=== PATIENT | male | born 1945 | race Caucasian/White ===

== ENCOUNTER 2023-07-16 06:15 | Inpatient (IN) | payer MEDICARE, OTHER, SELFPAY ==
--- NOTE | 2023-06-16 11:31 | CM ---
Patient is scheduled for lumbar spine surgery on 07/16/23. Spoke with patient prior to surgery via telephone. Introduced role of the Orthopedic Navigator. Patient reports that he lives alone in a one story condo. There are four steps to enter. He
currently functions independently. He has a rolling walker and back brace. He has had VN services. PCP is Jeremiah Fischer.
Discussed orthopedic program, post surgical plans and tentative plan for patient to return home when directed by surgeon. Patient is in agreement with tentative plan and states that his sister and [id number] will stay with him when he first
goes home.
Plan: Orthopedic Navigator will remain available to assist with the care of patient and will reassess discharge needs after surgery.
[2023-06-26 13:08] VITALS: BMI 31.6
[2023-06-26 13:48] LABS: Hematocrit 43.2 % (39.0-52.0); Hemoglobin 15.1 g/dL (13.0-18.0); Mean Corpuscular Hgb 32.5 pg (27.0-31.0); Mean Corpuscular Volume 93.1 fL (80.0-94.0); Mean Platelet Volume 10.2 fL (7.4-10.4); Platelet Count 242 10^3/uL (130-400); Red Blood Cell Count 4.64 10^6/uL (4.70-6.10); Red Cell Dist. Width 12.7 % (11.5-14.5); White Blood Cell Count 6.4 10^3/uL (4.8-10.8)
[2023-06-26 14:02] LABS: ALT (SGPT) 67 U/L (0-50); AST (SGOT) 50 U/L (17-59); Albumin 4.6 g/dl (3.5-5.0); Alkaline Phosphatase 97 U/L (38-126); Blood Urea Nitrogen 10 mg/dl (9-20); Calcium 9.2 mg/dl (8.4-10.2); Carbon Dioxide 31 mmol/L (22-30); Chloride 97 mmol/L (98-107); Estimated Creatinine Clearance 99 ml/min; Glucose 105 mg/dl (70-99); Potassium 3.7 mmol/L (3.5-5.1); Sodium 135 mmol/L (135-145); Total Bilirubin 1.4 mg/dl (0.2-1.3); eGFR > 60.00
[2023-06-26 15:19] VITALS: BMI 31.6
[2023-07-16] VITALS (12 sets, daily range): BP systolic 87–137; BP diastolic 48–80
[2023-07-16] MEDS: NORMOSOL-R 1000 IV ×3 (09:04→22:46)
[2023-07-16] MEDS: TYLENOL 1000 MG PO ×3 (09:05→22:45)
[2023-07-16] MEDS: LYRICA 150 MG PO (09:05)
[2023-07-16] MEDS: SKELAXIN 800 MG PO (09:05)
[2023-07-16] MEDS: CELEBREX 200 MG PO (09:05)
[2023-07-16] MEDS: DILAUDID 0.5 MG IV ×2 (12:31→13:12)
[2023-07-16] MEDS: DILAUDID 0.25 MG IV (14:47)
--- NOTE | 2023-07-16 17:30 | PTCARENOTE ---
Patient admitted to unit from PACU at 1715. Arrived via bed to 2109 with family present. Alert, oriented to room and plan of care and verbalized understanding. Admission database and assessment completed as documented. Patient consumed dinner
without issues. Will continue to monitor.
[2023-07-16] MEDS: ULTRAM 50 MG PO ×2 (17:38→19:46)
[2023-07-16] MEDS: PROZAC 40 MG PO (17:38)
[2023-07-16] MEDS: LIPITOR 80 MG PO (17:38)
[2023-07-16] MEDS: ANCEF 5 IV (17:38)
[2023-07-16] MEDS: SYNTHROID PO (18:40)
[2023-07-16] MEDS: VALIUM 5 MG PO (19:46)
[2023-07-16] MEDS: SENOKOT 17.1999999999999993 MG PO (19:46)
[2023-07-16] MEDS: COLACE 100 MG PO (19:46)
[2023-07-16] MEDS: LYRICA 75 MG PO (21:10)
--- NOTE | 2023-07-16 23:00 | PTCARENOTE ---
Pt AAOx3. minimal c/o back pain. Pt had difficulty urinated and was bladder scanned fro >547. FINISHING TUNNEL OPERATOR notified about retention. Pt put out 700 ml when straight cath. Pt has been able to void after straight cath. Pt was able to get up with brace on and no
major issue noted. minimal c/o pain. Will cont with tx plan.
[2023-07-17] MEDS: ANCEF 5 IV (00:09)
[2023-07-17] MEDS: ULTRAM 50 MG PO ×4 (00:09→12:53)
[2023-07-17 00:15] VITALS: BP 105/60
[2023-07-17 04:15] VITALS: BP 107/53
[2023-07-17] MEDS: TYLENOL 1000 MG PO ×2 (04:24→10:08)
[2023-07-17] MEDS: SYNTHROID 50 MCG PO (04:26)
[2023-07-17 06:00] VITALS: BMI 31.6
[2023-07-17 06:10] LABS: Hematocrit 37.1 % (39.0-52.0); Hemoglobin 12.7 g/dL (13.0-18.0)
[2023-07-17 06:41] LABS: Blood Urea Nitrogen 14 mg/dl (9-20); Calcium 8.6 mg/dl (8.4-10.2); Carbon Dioxide 32 mmol/L (22-30); Chloride 98 mmol/L (98-107); Estimated Creatinine Clearance 116 ml/min; Glucose 115 mg/dl (70-99); Potassium 4.6 mmol/L (3.5-5.1); Sodium 136 mmol/L (135-145); eGFR > 60.00
[2023-07-17 07:25] VITALS: BP 98/65
[2023-07-17] MEDS: LIPITOR 80 MG PO (08:28)
[2023-07-17] MEDS: COLACE 100 MG PO (08:28)
--- NOTE | 2023-07-17 08:28 | CM ---
Addendum entered by Yashira Hughes 07/17/23 11:43:
Patient did well in therapy. He has no concerns about going home and now states that he will be going to his sister's home.
Original Note:
Reviewed chart and held rounds with PT, OT and RN. Patient had planned lumbar spine surgery with Dr. Tovar on 07/16. Met with patient at bedside. Confirmed information previously obtained for assessment and discussed discharge plans. Patient continues
to plan to return home at discharge. He will have support from family and friends but no one will stay with him. Reviewed that he will work with PT/OT this morning and that discharge needs will depend on his functional status. However, no needs
currently identified.
Patient has a rolling walker at home.
Patient will use [facility] pharmacy for discharge prescriptions.
[2023-07-17] MEDS: SENOKOT 17.1999999999999993 MG PO (08:30)
[2023-07-17] MEDS: PROZAC 40 MG PO (08:31)
[2023-07-17] MEDS: LYRICA 75 MG PO (08:31)
[2023-07-17] MEDS: VALIUM 5 MG PO (08:36)
[2023-07-17 09:30] VITALS: BP 126/68; PULSE 67; O2SAT 97
--- NOTE | 2023-07-17 11:30 | W.PN.ORTHO ---
Today's Communication / Plan
-
d/c
Assessment
.
Distal Motor Intact: Yes
Dressing:
Clean, dry and intact.
Plan
.
Surgery / Date: R L4-[address] Tovar 07/16/23
Activity:
Out of bed.
PT/OT
Discharge Plan: Home
Subjective
.
.:
Patient resting comfortably.
Vital Signs and Labs
.
Vital Signs and Labs:
Lab Results
07/17/23 04:44
07/17/23 04:44
Temp Pulse Resp BP Pulse Ox
97.3 F 67 18 98/65 94
07/17/23 07:25 07/17/23 08:31 07/17/23 07:25 07/17/23 08:31 07/17/23 08:30
Physical Exam
-
HEENT: No pallor, cyanosis, or jaundice. Throat clear.
NECK: Supple. No JVD.
RESPIRATORY: Lungs clear to auscultation.
CVS: S1, S2 normal. RRR.� No murmur, rub or gallop.
ABDOMEN: Soft, non-tender. No distension. BS+/normal.
EXTREMITIES: strength equal, no calf pain with palpation
AIR TRAFFIC CONTROL EQUIPMENT REPAIRER: AOx3. No focal deficits. public health internship grossly intact
--- NOTE | 2023-07-17 11:40 | W.DS.TRANS ---
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
-
Discharge Instructions:
Sleep Apnea Risk Intermediate
Discharge Diagnosis/Procedures R L4-[address] Tovar 07/16/23
Diet As tolerated
Activity No strenuous activity
Driving Restrictions No driving
Instructions:
Stand-Alone Forms: [facility] Lumbar D/C Inst.
Changes to Home Medications: Yes
Discharge Medications:
DC Medications w/original date entered in [facility]
ascorbic acid (vitamin C) 500 mg tablet (Vitamin C) 1,000 mg PO BID Supplement 12/06/16
levothyroxine 50 mcg tablet 50 mcg PO DAILY Thyroid 12/06/16
vitamin E (dl, acetate) 180 mg (400 unit) capsule 400 units PO DAILY Supplement 12/06/16
atorvastatin 80 mg tablet 80 mg PO DAILY High cholesterol 04/16/21
cholecalciferol (vitamin D3) 125 mcg (5,000 unit) tablet (Vitamin D3) 125 mcg PO DAILY Supplement 04/16/21
diazepam 10 mg tablet 10 mg PO BID PRN anxiety 04/16/21
multivitamin with folic acid 400 mcg tablet (Tab-A-Ez) 1 tab PO DAILY Supplement 04/16/21
coQ10 (ubiquinol) 120 mg PO DAILY Supplement 06/24/23
fluoxetine 40 mg capsule 40 mg PO DAILY depression 06/24/23
losartan 50 mg-hydrochlorothiazide 12.5 mg tablet 1 tab PO DAILY Blood Pressure 06/24/23
vitamin B complex 1 tab PO DAILY Supplement 06/24/23
vitamins A,C,G-fnvz-ictmzr 2,148 mcg-113 mg-45 mg-17.4 mg tablet (PreserVision AREDS) 1 tab PO DAILY Supplement 06/24/23
aspirin 81 mg tablet,delayed release 81 mg PO DAILY Blood Clot Prevention/Tx 07/16/23
Saccharomyces boulardii 250 mg capsule (Florastor) 250 mg PO BID #1 cap 07/17/23
acetaminophen 325 mg capsule (Tylenol) 650 mg PO QID #2 caps 07/17/23
cephalexin 500 mg capsule 500 mg PO QID infection prevention #20 caps 07/17/23
dexamethasone 4 mg tablet 4 mg PO BID inflammation #6 tabs 07/17/23
diazepam 2 mg tablet (Valium) 2 mg PO HS PRN pain/sleep #5 tabs 07/17/23
docusate sodium 100 mg capsule (Colace) 100 mg PO BID stool softner #1 cap 07/17/23
gabapentin 300 mg capsule 300 mg PO HS sleep/pain #10 caps 07/17/23
magnesium hydroxide 400 mg/5 mL oral suspension (Milk of Magnesia) 30 ml PO HS PRN Constipation #1 mL 07/17/23
oxycodone 5 mg tablet 5 - 10 mg PO Q6HPRN PRN 1 tab moderate-2 tabs severe pain #30 tabs 07/17/23
sennosides 8.6 mg tablet (Senokot) 17.2 mg PO BID laxative #2 tabs 07/17/23
Home Medication Changes
cephalexin 500 mg capsule 500 mg PO QID� infection prevention #20 caps 07/17/23�
dexamethasone 4 mg tablet 4 mg PO BID inflammation #6 tabs 07/17/23�
gabapentin 300 mg capsule 300 mg PO HS sleep/pain #10 caps 07/17/23�
oxycodone 5 mg tablet 5 - 10 mg PO Q6HPRN PRN 1 tab moderate-2 tabs severe pain #30 tabs 07/17/23�
Pending Results: No
[2023-07-17 11:42] VITALS: BP 126/69
[2023-07-17 11:46] VITALS: BP 126/69; PULSE 72; O2SAT 99
== END 2023-07-17 14:07 | disposition home or self-care (01) | DRG 460 ==
LOC: 2 SOUTH 06:15
PROVIDERS: Physician Assistant Medical; ADMITTING PHYSICIAN Orthopaedic Surgery Orthopaedic Surgery of the Spine; FAMILY PHYSICIAN Family Medicine
PROC: 0SG00J1 Fusion of Lumbar Vertebral Joint with Synthetic Substitute, Posterior Approach, Posterior Column, Open Approach (ICD-10-PCS; 2023-07-16)
PROC: 01NB0ZZ Release Lumbar Nerve, Open Approach (ICD-10-PCS; 2023-07-16)
DX: M48.062 Spinal stenosis, lumbar region with neurogenic claudication (principal); M43.16 Spondylolisthesis, lumbar region; M54.9 Dorsalgia, unspecified; R53.1 Weakness; R20.2 Paresthesia of skin; E66.9 Obesity, unspecified; I10 Essential (primary) hypertension; E78.5 Hyperlipidemia, unspecified; N40.0 Benign prostatic hyperplasia without lower urinary tract symptoms; M71.38 Other bursal cyst, other site; E03.9 Hypothyroidism, unspecified; F32.A Depression, unspecified; F40.00 Agoraphobia, unspecified; K21.9 Gastro-esophageal reflux disease without esophagitis; H91.90 Unspecified hearing loss, unspecified ear; Z98.1 Arthrodesis status; Z68.31 Body mass index [BMI] 31.0-31.9, adult; Z90.79 Acquired absence of other genital organ(s); Z79.82 Long term (current) use of aspirin; Z79.890 Hormone replacement therapy
CPT/HCPCS: 88304; 36415; 72100; 76000; 80048; 80053; 85014; 85018; 85027; 86850; 86900; 86901; 87070; 93005; 97116; 97163; 97166; C1713; C1776

== ENCOUNTER 2025-05-02 17:29 | Emergency (ER) | payer MEDICARE, OTHER, SELFPAY ==
[2025-05-02 17:33] VITALS: BP 163/87
[2025-05-02 18:00] LABS: Hematocrit 41.3 % (39.0-52.0); Hemoglobin 14.4 g/dL (13.0-18.0); Mean Corp Hgb Conc. 34.9 g/dL (33.0-37.0); Mean Corpuscular Volume 91.4 fL (80.0-94.0); Nucleated Red Blood Cells % 0 % (-); Platelet Count 218 10^3/uL (130-400); Red Cell Dist. Width 12.6 % (11.5-14.5); Urine Character Cloudy (Clear)
[2025-05-02 18:16] LABS: ALT (SGPT) 50 U/L (0-50); AST (SGOT) 39 U/L (17-59); Albumin 4.8 g/dl (3.5-5.0); Alkaline Phosphatase 93 U/L (38-126); Blood Urea Nitrogen 12 mg/dl (9-20); Calcium 9.1 mg/dl (8.4-10.2); Carbon Dioxide 25 mmol/L (22-30); Chloride 99 mmol/L (98-107); Glucose 114 mg/dl (70-99); Potassium 3.8 mmol/L (3.5-5.1); Sodium 133 mmol/L (135-145); Total Protein 7.6 g/dl (6.3-8.2); Urine Red Blood Cell >100 /HPF (0-2); Urine Squamous Cell 0-2 /LPF (Few); Urine White Cell 0-2 /HPF (0-5); eGFR > 60.00
[2025-05-02 22:00] VITALS: BP 154/78
[2025-05-03 00:36] VITALS: BMI 31.3
[2025-05-03 00:45] VITALS: BP 152/84
--- NOTE | 2025-05-03 01:13 | ED.GENMED ---
History of Present Illness
General
Chief Complaint: Urinary Symptoms
Source: patient and spouse
Time Seen by Provider: 05/03/25 01:01
History of Present Illness
History of Present Illness:
79-year-old male presents the emergency room complaint hematuria. Patient states that he has known prostatic hypertrophy for which he sees Dr. Falcon. He had a TURP performed in 2020. Since that procedure he has had episodes where he passes a
little bit of blood and small clot and is short-lived. He has had cystoscopies performed by Dr. Falcon for this. Most recently had a cystoscopy about 3 weeks ago. He was told it looked fine. The episode today involve more blood and lasted
longer than what he is experience in the past. He has passed some clots. He was able to get his urinary stream started but then it stopped and with some force he was able to pass a clot and restart his stream. The amount of blood in the urine
seems to be dissipating. Currently the patient offers no complaints of abdominal pain or flank pain.
Phy Exam
Physical Exam
Physical Exam:
General: Awake, Alert, Oriented X3. No acute distress.
Vitals: unremarkable
Head: Atraumatic
Eyes: Pupils equal, EOMI
Throat: Airway intact, no exudates
Neck: Trachea midline
Lungs: Clear and equal b/l
Heart: Regular rate, no murmurs
Abd: Soft, Nontender, No pulsatile mass
Neuro: Nonfocal
Skin: Warm, dry, no rash
Extremities: pulses equal b/l, no edema
Course
Orders/Labs/Results
Orders:
Orders
05/02/25 17:51
CMP [Comprehensive Metabolic Panel] Urgent
Complete Blood Count/With Diff Urgent
Urinalysis Reflex To Culture Urgent
Date Specimen was Collected: 05/02/25
Time Specimen was Collected: 17:41
Urine Microscopic Reflex Cult Urgent
Urine Culture Urgent
PAPO Source: U
Specimen Description:
Date Specimen was Collected: 05/02/25
Time Specimen was Collected: 17:41
05/03/25 01:13
CT Abd/pel Without Iv Or Oral Urgent
Comment:
Reason For Exam: hematuria
05/03/25 02:08
Bladder Scan- Treatment ONCE
Comment: post-void residual
05/03/25 04:51
Cephalexin Monohydrate [Keflex] 500 mg PO NOW STA
Abnormal Lab Results
05/02/25
17:51
RBC 4.52 L 10^6/uL
(4.70-6.10)
MCH 31.9 H pg
(27.0-31.0)
Sodium 133 L mmol/L
(135-145)
Glucose 114 H mg/dl
(70-99)
Ur Occult Blood Reflex 4+ A
(Negative)
Leukocyte Esterase Rfl 1+ A
(Negative)
Urine RBC >100 A /HPF
(0-2)
Urine Albumin (Reflex) 3+ A
(Neg - Trace)
05/02/25 17:51
05/02/25 17:51
Vital Signs
Initial and Last Documented VS:
Initial Vital Signs
Temp Pulse Resp BP Pulse Ox
97.6 F 85 18 163/87 98
05/02/25 17:33 05/02/25 17:33 05/02/25 17:33 05/02/25 17:33 05/02/25 17:33
Last Documented Vital Signs
Temp Pulse Resp BP Pulse Ox
97.6 F 72 18 154/82 94
05/02/25 17:33 05/03/25 05:24 05/03/25 05:24 05/03/25 05:24 05/03/25 05:24
MDM/Problems Addressed
Differential Diagnosis Includes:
Urinary tract infection, kidney stone, bleeding from hypertrophied prostate, bladder cancer or other bladder lesion
MDM/Problems Addressed:
Patient presents with hematuria. He is passing small clots. The urine itself seems to be clearing however his postvoid residual was [address] scan of the abdomen/pelvis was performed. There is no emergent findings however the patient does
appear to have tiny amount of clot in the bladder which may be obstructing his urine flow. Harrison catheter placed in the bladder was irrigated. Small amount of clots were obtained. Patient we discharged with the Harrison catheter in place and
follow-up with urology as an outpatient
*Pulse Oximetry
SaO2: 94
Oxygen Mode of Delivery: Room air
Patient hypoxic: no
*Critical Care Note
Total Time (30-74mins, 75-104mins- exclusive of procedures): Not Applicable
ED Attending Note
-
Portions of this chart may have been created with voice recognition software.� Occasional wrong word or��sound alike� substitutions may have occurred due to the inherent limitations of voice recognition software.
Discharge Plan
Departure
Patient Disposition: Home (Routine Discharge)
Date of Disposition: 05/03/25
Time of Disposition: 04:50
Patient with high blood pressure during this ER visit?: No
Condition: Good
Discharge Problem:
Hematuria, Acute urinary retention
Instructions: How to Care for Your Harrison Catheter, Male, Blood in the Urine (Hematuria), Adult (DC), BLOOD PRESSURE
Prescriptions:
New
cephalexin 500 mg capsule
500 mg PO BID 7 Days Qty: 14 0RF
No Action
ascorbic acid (vitamin C) [Vitamin C] 500 MG tablet
1,000 mg PO BID
levothyroxine 50 MCG tablet
50 mcg PO DAILY
vitamin E (dl, acetate) 400 UNITS capsule
400 units PO DAILY
cholecalciferol (vitamin D3) [Vitamin D3] 125 mcg (5,000 unit) Tablet
125 mcg PO DAILY
multivitamin with folic acid [Tab-A-Ez] 1 TABLET tablet
1 tab PO DAILY
atorvastatin 80 MG tablet
80 mg PO DAILY
fluoxetine 40 mg Capsule
40 mg PO DAILY
vitamin B complex Tablet
1 tab PO DAILY
losartan-hydrochlorothiazide 50-12.5 mg Tablet
1 tab PO DAILY
PreserVision AREDS 2,148 mcg-113 mg-45 mg-17.4mg Tablet
1 tab PO DAILY
coQ10 (ubiquinol)
120 mg PO DAILY
aspirin 81 MG tablet,delayed release (DR/EC)
81 mg PO DAILY
sennosides [Senokot] 8.6 mg tablet
17.2 mg PO BID Qty: 2 0RF
magnesium hydroxide [Milk of Magnesia] 400 mg/5 mL suspension
30 ml PO HS PRN (Reason: Constipation) Qty: 1 0RF
cephalexin [cephalexin] 500 mg capsule
500 mg PO QID Qty: 20 0RF
dexamethasone 4 mg tablet
4 mg PO BID Qty: 6 0RF
Rx Instructions:
take with food
post-op use only
docusate sodium [Colace] 100 mg capsule
100 mg PO BID Qty: 1 0RF
gabapentin 300 mg capsule
300 mg PO HS Qty: 10 0RF
oxycodone 5 mg tablet
5 - 10 mg PO Q6HPRN PRN (Reason: 1 tab moderate-2 tabs severe pain) Qty: 30 0RF
Rx Instructions:
Dx surgery
ongoing therapy
Post-op use
acetaminophen [Tylenol] 325 mg capsule
650 mg PO QID Qty: 2 0RF
Saccharomyces boulardii [Florastor] 250 mg capsule
250 mg PO BID Qty: 1 0RF
diazepam 10 MG tablet
10 mg PO BID Qty: 0 0RF
Rx Instructions:
take nightly for one week for pain/sleep
Referrals:
Fang,Jeremiah, DO [Family Provider]
Newton Falcon MD [Active, Urology]
Interventions
Interventions:
*General Assessment Last Done: 05/03/25 00:37
*Neglect/Abuse Screening Last Done: 05/02/25 17:33
*ED COVID-19 Vaccine History Last Done: 05/03/25 00:37
*ED Influenza Vaccine History Last Done: 05/03/25 00:37
[facility] Fall Risk Assessment Tool Last Done: 05/03/25 00:39
*Risk Screen - Suicide (C-SSRS) Last Done: 05/03/25 04:00
*Nursing Disposition Last Done: 05/03/25 05:24
ED-Male Genitourinary Assessment Last Done: 05/03/25 00:34
Discharge Date and Time
Discharge Date/Time: 05/03/25 05:26
Print Language: [id number]
[2025-05-03 02:55] VITALS: BP 147/77
[2025-05-03 05:24] VITALS: BP 154/82
[2025-05-03] MEDS: KEFLEX 500 MG PO (05:30)
== END 2025-05-03 05:26 | disposition home or self-care (01) ==
LOC: EMR 17:29
PROVIDERS: Physician Assistant Medical; EMERGENCY PHYSICIAN Emergency Medicine; FAMILY PHYSICIAN Family Medicine; REFERRING PHYSICIAN Specialist
DX: N40.1 Benign prostatic hyperplasia with lower urinary tract symptoms (principal); R31.9 Hematuria, unspecified; Z46.6 Encounter for fitting and adjustment of urinary device
CPT/HCPCS: 99284; 74176; 80053; 81003; 81015; 85025; 87086